=== PATIENT | male | born 1980 | race Caucasian/White ===

== ENCOUNTER 2019-11-24 21:04 | Emergency (ER) | payer OTHER ==
[~2019-11-24] VITALS: Ht 180.3 cm; Wt 68.0 kg
[~2019-11-24 21:04] MED LIST: CEPHALEXIN 500500 M3 PO; IBUPROFEN 800800 M1 PO; ULTRAM 50MG TAB50 MG PO
[2019-11-24 22:13] VITALS: BP 137/54
== END 2019-11-24 22:14 | disposition home or self-care (01) ==
LOC: M.ERS 21:04
DX: S81.811A Laceration without foreign body, right lower leg, initial encounter (principal); F17.210 Nicotine dependence, cigarettes, uncomplicated; Z88.6 Allergy status to analgesic agent; Z88.8 Allergy status to other drugs, medicaments and biological substances; W26.8XXA Contact with other sharp object(s), not elsewhere classified, initial encounter; Y93.89 Activity, other specified; Y92.89 Other specified places as the place of occurrence of the external cause; Y99.8 Other external cause status